=== PATIENT | female | born 1985 | race Caucasian/White ===

== ENCOUNTER 2017-01-12 10:56 | Outpatient (CLI) | payer OTHER ==
--- NOTE | 2017-01-12 12:35 | DIAGNOSTIC IMAGING REPORT ---
PROCEDURE: US COMPLETE PELVIC W/TRANSVAG INDICATION: PELVIC PAIN TECHNIQUE: Transabdominal and endovaginal noguera scale and color Doppler sonographic images of the female pelvis were obtained. COMPARISON: None. FINDINGS: Multiple Nabothian cyst are seen TRANSABDOMINAL SCANS: The uterus is of normal size 6.4 x 5.4 x 5.9 cm Kidneys are normal. TRANSVAGINAL SCANS: The uterus is anteverted. Myometrium is normal. The endometrium measures 20 mm. Right ovary is normal measuring 4.6 x 4.4 x 2.5 cm and contains multiple follicular cysts the largest measuring 1.7 cm. The left ovary is normal measuring 5.2 x 4.6 x 3.3 cm and contains multiple follicular cysts, the largest measuring 3.1 cm There is an IUD in correct position. IMPRESSION: 1. Multiple Nabothian cysts. 2. Multiple follicular cyst on the both ovaries. 3. IUD in place.
== END 2017-01-12 23:00 ==
LOC: US SRH 10:56
DX: N88.8 Other specified noninflammatory disorders of cervix uteri (principal); N83.02 Follicular cyst of left ovary; N83.01 Follicular cyst of right ovary; Z97.5 Presence of (intrauterine) contraceptive device